=== PATIENT | male | born 1995 | race Two or more races ===

== ENCOUNTER → 2016-10-02 | Outpatient (REF) | payer BC | LOC: M SFHCLERA 11:47 | PROVIDERS: ATTEND Nurse Practitioner Family | DX: J06.9 Acute upper respiratory infection, unspecified (principal) ==

== ENCOUNTER → 2022-06-11 | Outpatient (REF) | payer BC | LOC: M SMT 13:22 | PROVIDERS: ATTEND Urology | DX: Z30.2 Encounter for sterilization (principal) ==